=== PATIENT | female | born 1970 | race Caucasian/White ===

== ENCOUNTER 2021-04-10 15:42 | Emergency (ER) | payer OTHER ==
[~2021-04-10] VITALS: Ht 165.1 cm; Wt 59.0 kg
[~2021-04-10 15:42] MED LIST: KEPPRA 500 MG500 M1 PO
[2021-04-10 16:42] LABS: WBC 4.9 thou/uL (4.0-11.0)
[2021-04-10 16:44] LABS: BASOPHILS 1.1 % (0.0-2.0); EOSINOPHILS 2.1 % (0.0-3.0); HEMATOCRIT 40.5 % (37.0-47.0); HEMOGLOBIN 13.8 gm/dL (12.0-15.0); LYMPHOCYTES 25.3 % (24.0-44.0); MCH 34.6 pg (26.0-34.0); MCHC 34.1 g/dL (28.0-37.0); MCV 101.7 fL (80.0-100.0); MONOCYTES 9.4 % (1.0-8.0); PLATELET COUNT 208 thou/uL (150-400); POLYS 62.1 % (36.0-66.0); RBC 3.98 mil/uL (4.20-5.00)
[2021-04-10 16:55] LABS: CREATININE 0.7 mg/dL (0.6-1.0); POTASSIUM 4.7 mmol/L (3.5-5.1)
[2021-04-10 17:01] LABS: TOTAL BILIRUBIN 0.4 mg/dL (0.2-1.0); TOTAL PROTEIN 7.3 g/dL (6.4-8.2)
[2021-04-10 19:22] VITALS: BP 94/61
--- NOTE | 2021-04-11 07:07 | EKG ---
[place] [address] [facility] [place] [address] ELECTROCARDIOGRAM REPORT Name: MANSOOR DOVERN [id number] Admission: 04/10/21 Attend Phys: Discharge: 04/10/21 Date of : 70 Report #: [id number] [facility] ED Test Date: 2021-04-10 Test Time: 16:16:33 Pat Name: MANSOOR DOVER Department: Room: Gender: F Gag Writer: SUSI : 1970 Requested By: Yaritza Orellana Order Number: [id number] MD: Logan Pichardo Measurements Intervals [place] Rate: 63 P: 78 TN: 170 QRS: 79 QRSD: 104 T: 49 QT: 400 QTc: 410 Interpretive Statements Sinus rhythm Compared to ECG 02/14/1995 07:25:00 Sinus tachycardia no longer present T-wave abnormality no longer present Possible ischemia no longer present Electronically Signed On 04-11-2021 7:07:26 CDT by Logan Pichardo [email or web address] <ELECTRONICALLY SIGNED> By: Logan Pichardo MD, [facility] 04/11/21 0707 15 15 Logan Pichardo MD, FACC /EPI
== END 2021-04-10 19:23 | disposition home or self-care (01) ==
LOC: ER 15:42
PROVIDERS: Physician Assistant
DX: G43.909 Migraine, unspecified, not intractable, without status migrainosus (principal); I10 Essential (primary) hypertension; F41.9 Anxiety disorder, unspecified; Z88.5 Allergy status to narcotic agent